=== PATIENT | female | born 1985 | race Asian ===

== ENCOUNTER 2016-11-01 10:52 | Outpatient (RCR) | payer OTHER ==
[~2016-11-01 10:52] MED LIST: PERCOCET 325 MG1 TA2 PO; ULTRAM 50MG TAB50 MG PO
== END 2017-01-30 ==
LOC: WSOH
DX: S90.01XA Contusion of right ankle, initial encounter (principal); W20.8XXA Other cause of strike by thrown, projected or falling object, initial encounter; Y99.0 Civilian activity done for income or pay

== ENCOUNTER → 2017-07-31 | Outpatient (CLI) | payer OTHER | LOC: SUN.DIA 15:06 | DX: O24.419 Gestational diabetes mellitus in pregnancy, unspecified control (principal); Z3A.30 30 weeks gestation of pregnancy; E28.2 Polycystic ovarian syndrome; Z71.3 Dietary counseling and surveillance | CPT/HCPCS: G0108 ==

== ENCOUNTER → 2017-08-13 | Outpatient (CLI) | payer OTHER | LOC: SUN.DIA 15:09 | DX: O24.419 Gestational diabetes mellitus in pregnancy, unspecified control (principal); Z3A.32 32 weeks gestation of pregnancy; E28.2 Polycystic ovarian syndrome; Z71.3 Dietary counseling and surveillance | CPT/HCPCS: G0108 ==

== ENCOUNTER → 2017-08-20 | Outpatient (CLI) | payer OTHER | LOC: SUN.DIA 07:52 | DX: O24.414 Gestational diabetes mellitus in pregnancy, insulin controlled (principal); Z3A.33 33 weeks gestation of pregnancy; E28.2 Polycystic ovarian syndrome; Z71.3 Dietary counseling and surveillance | CPT/HCPCS: G0108 ==

== ENCOUNTER → 2017-09-03 | Outpatient (CLI) | payer OTHER | LOC: SUN.DIA 10:17 | DX: O24.414 Gestational diabetes mellitus in pregnancy, insulin controlled (principal); Z3A.35 35 weeks gestation of pregnancy; E28.2 Polycystic ovarian syndrome; Z71.3 Dietary counseling and surveillance | CPT/HCPCS: G0108 ==

== ENCOUNTER → 2017-09-18 | Outpatient (CLI) | payer BC | LOC: SUN.DIA 14:09 | DX: O24.414 Gestational diabetes mellitus in pregnancy, insulin controlled (principal); Z3A.37 37 weeks gestation of pregnancy; E28.2 Polycystic ovarian syndrome; Z71.3 Dietary counseling and surveillance | CPT/HCPCS: G0108 ==

== ENCOUNTER → 2017-10-02 | Outpatient (CLI) | payer BC | LOC: SUN.DIA 10:22 | DX: O24.414 Gestational diabetes mellitus in pregnancy, insulin controlled (principal); Z3A.39 39 weeks gestation of pregnancy; Z71.3 Dietary counseling and surveillance; E28.2 Polycystic ovarian syndrome | CPT/HCPCS: G0108 ==

== ENCOUNTER 2017-10-07 07:05 | Inpatient (IN) | payer BC ==
[2017-10-07] VITALS (64 sets, daily range): BP systolic 103–140; BP diastolic 51–95; PULSE 76–126; TEMP 97.9–98.8
[~2017-10-07] VITALS: Ht 149.9 cm; Wt 75.5 kg
[2017-10-07] MEDS ORDERED: PRENATAL (07:35)
[2017-10-07 08:02] LABS: BASO % 0.3 % (0.0-2.0); EOS # 0.1 (0.0-0.7); GRAN # 6.9 (1.4-6.5); GRAN % 73.4 % (42.2-75.2); HEMATOCRIT 39.8 % (37.0-47.0); HEMOGLOBIN 13.3 g/dl (12.5-16.0); LYMPH # 1.6 (1.2-3.4); MEAN CELL VOLUME 85 fl (80.0-100.0); MEAN CORPUSCULAR HEMOGLOBIN 29 pg (27.0-31.0); MEAN CORPUSCULAR HGB CONC 33 g/dl (33.0-37.0); MEAN PLATELET VOLUME 10.7 fl (7.4-10.4); MONO # 0.8 (0.1-0.6); MONO % 7.9 % (1.7-9.3); PLATELET COUNT 203 K/mm3 (130-400); RED BLOOD COUNT 4.67 M/mm3 (4.10-5.30); REDCELL DISTRIBUTION WIDTH-CV 13.9 % (11.5-14.5)
[2017-10-08] VITALS (20 sets, daily range): BP systolic 100–149; BP diastolic 56–87; PULSE 70–100; TEMP 97.6–98.8
[2017-10-09 00:02] VITALS: BP 97/60; PULSE 74; TEMP 98.2
[2017-10-09 07:10] VITALS: BP 123/73; PULSE 85; TEMP 98.3
[2017-10-09 14:26] VITALS: BP 118/74; PULSE 84
[2017-10-09 14:42] VITALS: BP 118/74; PULSE 84; TEMP 97.6
[2017-10-09 15:21] LABS: HEMATOCRIT 30.6 % (37.0-47.0); HEMOGLOBIN 9.9 g/dl (12.5-16.0)
[2017-10-09 16:27] VITALS: BP 101/65; PULSE 77; TEMP 98
[2017-10-09 20:00] VITALS: BP 121/74; PULSE 78; TEMP 97.6
[2017-10-10 06:45] VITALS: BP 126/87; PULSE 85; TEMP 97.8
[2017-10-10] MEDS ORDERED: MOTRIN 800800 MG/TAB PO (08:50)
[2017-10-10] MEDS ORDERED: NORCO 325 MG-51 TAB PO (08:50)
== END 2017-10-10 11:15 | disposition home or self-care (01) | DRG 766 ==
LOC: LDR 07:05 → OB 10-08 02:00
PROVIDERS: Obstetrics & Gynecology
PROC: 10D00Z1 Extraction of Products of Conception, Low, Open Approach (ICD-10-PCS; principal; 2017-10-08)
PROC: 3E033VJ Introduction of Other Hormone into Peripheral Vein, Percutaneous Approach (ICD-10-PCS; 2017-10-08)
PROC: 10907ZC Drainage of Amniotic Fluid, Therapeutic from Products of Conception, Via Natural or Artificial Opening (ICD-10-PCS; 2017-10-08)
DX: O62.1 Secondary uterine inertia (principal); Z3A.39 39 weeks gestation of pregnancy; Z37.0 Single live birth; O24.424 Gestational diabetes mellitus in childbirth, insulin controlled; Z22.330 Carrier of Group B streptococcus
CPT/HCPCS: J0690; J1200; J1885; J2210; J2270; J2370; J2400; J2405; J2540; J2590; J2795; J7030